=== PATIENT | female | born 1995 | race American Indian/Alaskan Native ===

== ENCOUNTER 2017-09-25 15:03 | Inpatient (IN) | payer OTHER ==
[2017-09-25 16:32] LABS: Hematocrit 35.8 % (30.3-42.9); Hemoglobin 12.4 gm/dl (10.1-14.3); Mean Corpuscular HGB Conc 35 % (30-34); Mean Corpuscular Hemoglobin 33 pg (28-32); Mean Corpuscular Volume 95 fl (79-97); Platelet Count 124 K/mm3 (140-440); Red Blood Count 3.78 M/mm3 (3.65-5.03); Red Cell Distribution Width 13.4 % (13.2-15.2); White Blood Count 7.9 K/mm3 (4.5-11.0)
[2017-09-25 16:40] LABS: Bacteria,Urine 4+ /HPF (Negative); Bilirubin,Urine NEG (Negative); Blood,Urine NEG (Negative); Ketones,Urine NEG (Negative); Leukocyte Esterase,Urine NEG (Negative); Mucus,Urine 1+ /HPF; Nitrite,Urine NEG (Negative); Urobilinogen,Urine < 2.0 mg/dL (<2.0)
[2017-09-25 16:41] LABS: Protein,Urine >500 mg/dL (Negative)
[2017-09-25 16:55] LABS: Alanine Aminotransferase 12 units/L (7-56); Lactate Dehydrogenase 268 units/L (91-180); Uric Acid 7.4 mg/dL (3.5-7.6)
[2017-09-25] MEDS ORDERED: MINERAL OIL PO PRN (17:10)
--- NOTE | 2017-09-25 17:38 | History and Physical Report ---
History of Present Illness Date of examination: 09/25/17 Date of admission: 09/25/17 15:33 Chief complaint: 37 weeks with gestational HTN History of present illness: Patient is a 22 year old , LMP 01/09/17, EDC 10/16/17 who was sent from the office at 37 weeks gestation for elevated BP and edema. She denies any headache , visual changes, or RUQ pain. She reports good movement. Her care is complicated by morbid obesity, GBS bacturiria. FHT has been CAT 1. Past History Past Medical History: other (bronchitis) Past Surgical History: no surgical history - Obstetrical History Expected Date of Delivery: 10/16/17 Actual Gestation: 37 Week(s) 0 Day(s) : 1 Para: 0 Medications and Allergies Allergies Allergy/AdvReac Type Severity Reaction Status Date / Time No Known Allergies Allergy Unverified 09/25/17 16:24 Home Medications Medication Instructions Recorded Confirmed Last Taken Type RX: No Known Home Medications [No 09/25/17 09/25/17 Unknown History Reported Home Medications] Active Meds: Active Medications Lactated Ringer's (Lactated Ringers) 1,000 mls @ 125 mls/hr IV DIRECT URSULA Mineral Oil (Mineral Oil) 30 ml PO QHS PRN PRN Reason: Constipation - Vital Signs Vital signs: Vital Signs Pulse BP 84 132/78 09/25/17 15:53 09/25/17 15:53 Temp Pulse Resp BP Pulse Ox 98.1 F 84 18 162/85 99 09/25/17 17:00 09/25/17 17:27 09/25/17 17:00 09/25/17 16:50 09/25/17 17:27 - Physical Exam Cardiovascular: Normal S1, Normal S2 Lungs: Positive: Clear to auscultation Vulva: both: normal Adnexa: both: normal Deep Tendon Reflex Grade: Normal +2 - Obstetrical FHR: category 1 Uterine Contraction Monitor Mode: External Uterine Contraction Pattern: Absent Results Result Diagrams: 09/25/17 16:24 09/25/17 16:24 Abnormal lab results 09/25/17 09/25/17 09/25/17 Range/Units 15:30 16:24 16:24 MCH 33 H (28-32) pg MCHC 35 H (30-34) % Plt Count 124 L (140-440) K/mm3 Lactate Dehydrogenase 268 H (91-180) units/L Urine WBC (Auto) 19.0 H (0.0-6.0) /HPF All other labs normal. Assessment and Plan - Patient Problems (1) 37 weeks gestation of Current Visit: Yes Status: Acute (2) Pre-eclampsia Current Visit: Yes Status: Acute Plan to address problem: Admit to L&D. Toxemia labs done. FHT and toco monitoring. Magnesium sulfate. Monitor Mg level, urine output. Monitor BP. (3) Morbid obesity due to excess calories Current Visit: Yes Status: Acute
[2017-09-25] MEDS ORDERED: MAGNESIUM SULFATE 4GM/100ML 4 GM/100 ML BAG IV ONE (17:45)
--- NOTE | 2017-09-25 17:56 | Progress Note ---
Assessment and Plan - Patient Problems (1) 37 weeks gestation of Current Visit: Yes Status: Acute (2) Pre-eclampsia Current Visit: Yes Status: Acute Plan to address problem: Toxemia labs done. FHT and toco monitoring. Magnesium sulfate. Monitor Mg level, urine output. Monitor BP. Labor induction with cytotec. (3) Morbid obesity due to excess calories Current Visit: Yes Status: Acute (4) GBS (group B streptococcus) infection Current Visit: Yes Status: Acute Plan to address problem: For IV antibiotics in active labor. (5) Wheezing symptom Current Visit: Yes Status: Acute Plan to address problem: Albuterol Q4 hrs. Subjective - Subjective Date of service: 09/25/17 Principal diagnosis: 37 weeks with pre-eclampsia Interval history: Patient is a 22 year old , LMP 01/09/17, EDC 10/16/17 who was sent from the office at 37 weeks gestation for elevated BP and edema. She denies any headache , visual changes, or RUQ pain. She reports good movement. Her care is complicated by morbid obesity, GBS bacturiria. FHT has been CAT 1. Toxemia labs were sent. I discussed labor induction with patient for pre-eclampsia. Will start magnesium sulfate. Monitor mg level, BP, urine output. Will insert cytotec, continue monitoring. Objective - Vital Signs Vital Signs: Vital Signs - 12hr 09/25/17 09/25/17 09/25/17 15:53 16:05 16:06 Temperature Pulse Rate 84 84 85 Respiratory Rate Blood Pressure 132/78 140/81 O2 Sat by Pulse 100 Oximetry 09/25/17 09/25/17 09/25/17 16:11 16:16 16:21 Temperature Pulse Rate 85 94 H 93 H Respiratory Rate Blood Pressure O2 Sat by Pulse 98 98 98 Oximetry 09/25/17 09/25/17 09/25/17 16:26 16:31 16:34 Temperature Pulse Rate 89 86 91 H Respiratory Rate Blood Pressure O2 Sat by Pulse 98 98 93 Oximetry 09/25/17 09/25/17 09/25/17 16:36 16:41 16:46 Temperature Pulse Rate 94 H 84 84 Respiratory Rate Blood Pressure 132/80 O2 Sat by Pulse 94 97 98 Oximetry 09/25/17 09/25/17 09/25/17 16:50 16:51 16:56 Temperature Pulse Rate 86 78 79 Respiratory Rate Blood Pressure 162/85 O2 Sat by Pulse 97 98 Oximetry 09/25/17 09/25/17 09/25/17 17:00 17:01 17:06 Temperature 98.1 F Pulse Rate 90 73 Respiratory 18 Rate Blood Pressure O2 Sat by Pulse 97 98 Oximetry 09/25/17 09/25/17 09/25/17 17:11 17:17 17:22 Temperature Pulse Rate 88 85 87 Respiratory Rate Blood Pressure O2 Sat by Pulse 97 99 99 Oximetry 09/25/17 09/25/17 09/25/17 17:27 17:32 17:37 Temperature Pulse Rate 84 86 74 Respiratory Rate Blood Pressure 159/87 O2 Sat by Pulse 99 99 95 Oximetry 09/25/17 09/25/17 09/25/17 17:42 17:47 17:52 Temperature Pulse Rate 88 84 90 Respiratory Rate Blood Pressure O2 Sat by Pulse 98 98 97 Oximetry - Exam Cardiovascular: Normal S1, Normal S2 Lungs: Clear to auscultation Vulva: both: normal FHR: category 1 Uterine Contraction Monitor Mode: External Uterine Contraction Pattern: Absent Deep Tendon Reflex Grade: Normal +2 - Labs Labs: Abnormal Labs 09/25/17 09/25/17 09/25/17 15:30 16:24 16:24 MCH 33 H MCHC 35 H Plt Count 124 L Lactate Dehydrogenase 268 H Urine WBC (Auto) 19.0 H Laboratory Results - last 24 hr 09/25/17 09/25/17 09/25/17 15:30 16:24 16:24 WBC 7.9 RBC 3.78 Hgb 12.4 Hct 35.8 MCV 95 MCH 33 H MCHC 35 H RDW 13.4 Plt Count 124 L Creatinine 0.8 Estimated GFR > 60 Uric Acid 7.4 AST 17 ALT 12 Lactate Dehydrogenase 268 H Urine Color Yellow Urine Turbidity Clear Urine pH 6.0 Ur Specific [place] 1.020 Urine Protein >500 Urine Glucose (UA) Neg Urine Ketones Neg Urine Blood Neg Urine Nitrite Neg Urine Bilirubin Neg Urine Urobilinogen < 2.0 Ur Leukocyte Esterase Neg Urine WBC (Auto) 19.0 H Urine RBC (Auto) 4.0 U Epithel Cells (Auto) 6.0 Urine Bacteria (Auto) 4+ Hyaline Casts 2 Urine Mucus 1+
[2017-09-25] MEDS ORDERED: MAGNESIUM SULFATE 40GM/1000ML 40 GM/1,000 ML BAG IV SCH (18:00)
[2017-09-25] MEDS: CYTOTEC VG PRN (18:00)
[2017-09-25] MEDS ORDERED: PROAIR IH PRN (18:02)
--- NOTE | 2017-09-25 18:20 | Progress Note ---
Assessment and Plan - Patient Problems (1) 37 weeks gestation of Current Visit: Yes Status: Acute (2) Pre-eclampsia Current Visit: Yes Status: Acute Plan to address problem: Magnesium sulfate was started. Monitor Mg level, urine output. Monitor BP. presentation was confirmed to be VTX by bedside ultrasound. Labor induced with cytotec dose#1 inserted. Continue FHT and toco monitoring. (3) Morbid obesity due to excess calories Current Visit: Yes Status: Acute (4) GBS (group B streptococcus) infection Current Visit: Yes Status: Acute Plan to address problem: For IV antibiotics in active labor. (5) Wheezing symptom Current Visit: Yes Status: Acute Plan to address problem: Albuterol Q4 hrs. Subjective - Subjective Date of service: 09/25/17 Principal diagnosis: 37 weeks with pre-eclampsia Interval history: Patient is a 22 year old , LMP 01/09/17, EDC 10/16/17 who was sent from the office at 37 weeks gestation for elevated BP. She was found to have pre- eclampsia. She denies any headache, visual changes, or RUQ pain. I discussed labor induction with patient. Cytotec 25 mcg was inserted at 6:10 PM. FHT and toco monitoring. Magnesium sulfate started. Monitor mg level, BP, urine output. Objective - Vital Signs Vital Signs: Vital Signs - 12hr 09/25/17 09/25/17 09/25/17 15:53 16:05 16:06 Temperature Pulse Rate 84 84 85 Respiratory Rate Blood Pressure 132/78 140/81 O2 Sat by Pulse 100 Oximetry 09/25/17 09/25/17 09/25/17 16:11 16:16 16:21 Temperature Pulse Rate 85 94 H 93 H Respiratory Rate Blood Pressure O2 Sat by Pulse 98 98 98 Oximetry 09/25/17 09/25/17 09/25/17 16:26 16:31 16:34 Temperature Pulse Rate 89 86 91 H Respiratory Rate Blood Pressure O2 Sat by Pulse 98 98 93 Oximetry 09/25/17 09/25/17 09/25/17 16:36 16:41 16:46 Temperature Pulse Rate 94 H 84 84 Respiratory Rate Blood Pressure 132/80 O2 Sat by Pulse 94 97 98 Oximetry 09/25/17 09/25/17 09/25/17 16:50 16:51 16:56 Temperature Pulse Rate 86 78 79 Respiratory Rate Blood Pressure 162/85 O2 Sat by Pulse 97 98 Oximetry 09/25/17 09/25/17 09/25/17 17:00 17:01 17:06 Temperature 98.1 F Pulse Rate 90 73 Respiratory 18 Rate Blood Pressure O2 Sat by Pulse 97 98 Oximetry 09/25/17 09/25/17 09/25/17 17:11 17:17 17:22 Temperature Pulse Rate 88 85 87 Respiratory Rate Blood Pressure O2 Sat by Pulse 97 99 99 Oximetry 09/25/17 09/25/17 09/25/17 17:27 17:32 17:37 Temperature Pulse Rate 84 86 74 Respiratory Rate Blood Pressure 159/87 O2 Sat by Pulse 99 99 95 Oximetry 09/25/17 09/25/17 09/25/17 17:42 17:47 17:52 Temperature Pulse Rate 88 84 90 Respiratory Rate Blood Pressure O2 Sat by Pulse 98 98 97 Oximetry 09/25/17 09/25/17 09/25/17 17:57 18:02 18:06 Temperature Pulse Rate 94 H 84 85 Respiratory Rate Blood Pressure 150/80 O2 Sat by Pulse 97 98 Oximetry 09/25/17 09/25/17 09/25/17 18:07 18:12 18:17 Temperature Pulse Rate 83 81 90 Respiratory Rate Blood Pressure O2 Sat by Pulse 98 98 98 Oximetry - Exam Cardiovascular: Normal S1 Lungs: Clear to auscultation Vulva: both: normal FHR: category 1 Uterine Contraction Monitor Mode: External - Labs Labs: Abnormal Labs 09/25/17 09/25/17 09/25/17 15:30 16:24 16:24 MCH 33 H MCHC 35 H Plt Count 124 L Lactate Dehydrogenase 268 H Urine WBC (Auto) 19.0 H Laboratory Results - last 24 hr 09/25/17 09/25/17 09/25/17 15:30 16:24 16:24 WBC 7.9 RBC 3.78 Hgb 12.4 Hct 35.8 MCV 95 MCH 33 H MCHC 35 H RDW 13.4 Plt Count 124 L Creatinine 0.8 Estimated GFR > 60 Uric Acid 7.4 AST 17 ALT 12 Lactate Dehydrogenase 268 H Urine Color Yellow Urine Turbidity Clear Urine pH 6.0 Ur Specific [place] 1.020 Urine Protein >500 Urine Glucose (UA) Neg Urine Ketones Neg Urine Blood Neg Urine Nitrite Neg Urine Bilirubin Neg Urine Urobilinogen < 2.0 Ur Leukocyte Esterase Neg Urine WBC (Auto) 19.0 H Urine RBC (Auto) 4.0 U Epithel Cells (Auto) 6.0 Urine Bacteria (Auto) 4+ Hyaline Casts 2 Urine Mucus 1+
--- NOTE | 2017-09-25 22:51 | Event Note ---
Date: 09/25/17 S: Pt in high-villagomez's position. Family members at bedside. Reports discomfort at mooney catheter site. Was feeling her ctxs earlier but not any more. Denies headache, vision changes, epigastric pain, or N/V. O: FHR 130, moderate variability, +accels, no decels CTXS irreg, palpate mild SVE FT/th/-3 Cytotec 25mcg to posterior fornix of vagina @ 22:30 BPs 139/82, 141/83, 153/81, 188/93 Magnesium therapy ongoing A: 22yo G 1 P 0 0 0 0 @ 37 wks gestation Category I FHR Pre-eclampsia No active labor P: Continue magnesium sulfate therapy Continue cervical ripening with Cytotec Anticipate vaginal delivery
[2017-09-26] MEDS ORDERED: SUBLIMAZE IV PRN (01:18)
[2017-09-26] MEDS ORDERED: STADOL IV PRN (01:18)
[2017-09-26] MEDS: CYTOTEC VG PRN (02:25)
[2017-09-26] MEDS: LACTATED RINGERS 1,000 ML IV SCH (05:43)
[2017-09-26] MEDS ORDERED: POLYCILLIN/NS 2 GM/100 ML 2 GM/100 ML BAG IV ONE (06:49)
[2017-09-26 08:13] LABS: Basophils % (Auto) 0.3 % (0.0-1.8); Eosinophils % (Auto) 0.6 % (0.0-4.3); Hematocrit 38.5 % (30.3-42.9); Hemoglobin 13.2 gm/dl (10.1-14.3); Mean Corpuscular HGB Conc 34 % (30-34); Mean Corpuscular Hemoglobin 33 pg (28-32); Mean Corpuscular Volume 95 fl (79-97); Platelet Count 124 K/mm3 (140-440); Red Blood Count 4.04 M/mm3 (3.65-5.03); Red Cell Distribution Width 13.5 % (13.2-15.2); White Blood Count 10.2 K/mm3 (4.5-11.0)
[2017-09-26] MEDS ORDERED: POLYCILLIN/NS 1 GM/50 ML 1 GM/50 ML BAG IV SCH (10:00)
[2017-09-26] MEDS ORDERED: PROVENTIL IH ONE (10:09)
--- NOTE | 2017-09-26 10:38 | Progress Note ---
Assessment and Plan - Patient Problems (1) 37 weeks gestation of Current Visit: Yes Status: Acute (2) Pre-eclampsia Current Visit: Yes Status: Acute Plan to address problem: FHT and toco monitoring. Magnesium sulfate. Monitor Mg level, urine output. Monitor BP. (3) Morbid obesity due to excess calories Current Visit: Yes Status: Acute (4) GBS (group B streptococcus) infection Current Visit: Yes Status: Acute Plan to address problem: For IV antibiotics in active labor. (5) Wheezing symptom Current Visit: Yes Status: Acute Plan to address problem: Albuterol Q4 hrs. (6) Failed induction of labor, antepartum Current Visit: Yes Status: Acute Plan to address problem: I discussed delivery via C/section with the patient. Risk, benefits of the procedure were discussed in detail with the patient which inlcuded but not limited to the risks of infection, hemorrhage requiring blood transfusion, injury to the bowel, bladder, and blood vessels. She expressed understanding, her questions were answered, she gave her informed consent. Patient is NPO. Anesthesia and peds have been notified. Subjective - Subjective Date of service: 09/26/17 Principal diagnosis: 37 weeks with pre-eclampsia Interval history: Patient is a 22 year old , LMP 01/09/17, EDC 10/16/17 who was sent from the office at 37 weeks gestation for elevated BP. She was given magnesium sulfate and induced with cytotec. She has not made any progress after 4 cytotec doses. She was counselled for delivery via C/section. FHT has been CAT 1. Objective - Vital Signs Vital Signs: Vital Signs - 12hr 09/25/17 09/25/17 09/25/17 22:37 22:42 22:45 Temperature Pulse Rate 80 89 81 Pulse Rate [ Bilateral] Respiratory Rate Respiratory Rate [Bilateral ] Blood Pressure 188/93 Blood Pressure [Right] O2 Sat by Pulse 99 99 Oximetry 09/25/17 09/25/17 09/25/17 22:47 22:52 22:57 Temperature Pulse Rate 79 83 84 Pulse Rate [ Bilateral] Respiratory Rate Respiratory Rate [Bilateral ] Blood Pressure Blood Pressure [Right] O2 Sat by Pulse 99 99 98 Oximetry 09/25/17 09/25/17 09/25/17 23:01 23:02 23:07 Temperature Pulse Rate 82 78 82 Pulse Rate [ Bilateral] Respiratory Rate Respiratory Rate [Bilateral ] Blood Pressure 199/107 Blood Pressure [Right] O2 Sat by Pulse 99 98 Oximetry 09/25/17 09/25/17 09/25/17 23:12 23:14 23:17 Temperature Pulse Rate 80 83 80 Pulse Rate [ Bilateral] Respiratory Rate Respiratory Rate [Bilateral ] Blood Pressure 188/110 160/77 Blood Pressure [Right] O2 Sat by Pulse 99 98 Oximetry 09/25/17 09/25/17 09/25/17 23:22 23:27 23:29 Temperature Pulse Rate 78 82 83 Pulse Rate [ Bilateral] Respiratory Rate Respiratory Rate [Bilateral ] Blood Pressure 174/83 Blood Pressure [Right] O2 Sat by Pulse 100 100 Oximetry 09/25/17 09/25/17 09/25/17 23:32 23:37 23:42 Temperature Pulse Rate 84 80 80 Pulse Rate [ Bilateral] Respiratory Rate Respiratory Rate [Bilateral ] Blood Pressure Blood Pressure [Right] O2 Sat by Pulse 99 99 99 Oximetry 09/25/17 09/25/17 09/25/17 23:45 23:47 23:52 Temperature Pulse Rate 75 83 81 Pulse Rate [ Bilateral] Respiratory Rate Respiratory Rate [Bilateral ] Blood Pressure 173/91 Blood Pressure [Right] O2 Sat by Pulse 99 99 Oximetry 09/25/17 09/25/17 09/26/17 23:57 23:59 00:00 Temperature Pulse Rate 88 84 81 Pulse Rate [ Bilateral] Respiratory Rate Respiratory Rate [Bilateral ] Blood Pressure 180/94 Blood Pressure 119/67 [Right] O2 Sat by Pulse 99 Oximetry 09/26/17 09/26/17 09/26/17 00:02 00:07 00:12 Temperature Pulse Rate 80 80 88 Pulse Rate [ Bilateral] Respiratory Rate Respiratory Rate [Bilateral ] Blood Pressure Blood Pressure [Right] O2 Sat by Pulse 98 100 100 Oximetry 09/26/17 09/26/17 09/26/17 00:16 00:17 00:22 Temperature Pulse Rate 83 89 85 Pulse Rate [ Bilateral] Respiratory Rate Respiratory Rate [Bilateral ] Blood Pressure 208/97 Blood Pressure [Right] O2 Sat by Pulse 99 100 Oximetry 09/26/17 09/26/17 09/26/17 00:27 00:29 00:32 Temperature Pulse Rate 85 81 91 H Pulse Rate [ Bilateral] Respiratory Rate Respiratory Rate [Bilateral ] Blood Pressure 119/67 Blood Pressure [Right] O2 Sat by Pulse 100 100 Oximetry 09/26/17 09/26/17 09/26/17 00:37 00:42 00:44 Temperature Pulse Rate 85 81 81 Pulse Rate [ Bilateral] Respiratory Rate Respiratory Rate [Bilateral ] Blood Pressure 131/71 Blood Pressure [Right] O2 Sat by Pulse 100 100 Oximetry 09/26/17 09/26/17 09/26/17 00:47 00:52 00:57 Temperature Pulse Rate 77 83 83 Pulse Rate [ Bilateral] Respiratory Rate Respiratory Rate [Bilateral ] Blood Pressure Blood Pressure [Right] O2 Sat by Pulse 99 99 98 Oximetry 09/26/17 09/26/17 09/26/17 01:00 01:01 01:02 Temperature Pulse Rate 77 82 81 Pulse Rate [ Bilateral] Respiratory Rate Respiratory Rate [Bilateral ] Blood Pressure 118/58 Blood Pressure [Right] O2 Sat by Pulse 85 98 Oximetry 09/26/17 09/26/17 09/26/17 01:07 01:12 01:17 Temperature Pulse Rate 75 85 85 Pulse Rate [ Bilateral] Respiratory Rate Respiratory Rate [Bilateral ] Blood Pressure Blood Pressure [Right] O2 Sat by Pulse 98 98 97 Oximetry 09/26/17 09/26/17 09/26/17 01:22 01:27 01:32 Temperature Pulse Rate 89 85 82 Pulse Rate [ Bilateral] Respiratory Rate Respiratory Rate [Bilateral ] Blood Pressure Blood Pressure [Right] O2 Sat by Pulse 97 97 97 Oximetry 09/26/17 09/26/17 09/26/17 01:37 01:42 01:47 Temperature Pulse Rate 79 78 80 Pulse Rate [ Bilateral] Respiratory Rate Respiratory Rate [Bilateral ] Blood Pressure Blood Pressure [Right] O2 Sat by Pulse 97 97 96 Oximetry 09/26/17 09/26/17 09/26/17 01:52 01:57 02:00 Temperature 97.8 F Pulse Rate 83 85 86 Pulse Rate [ Bilateral] Respiratory 18 Rate Respiratory Rate [Bilateral ] Blood Pressure Blood Pressure 139/76 [Right] O2 Sat by Pulse 96 97 Oximetry 09/26/17 09/26/17 09/26/17 02:02 02:07 02:12 Temperature Pulse Rate 87 88 87 Pulse Rate [ Bilateral] Respiratory 18 Rate Respiratory Rate [Bilateral ] Blood Pressure Blood Pressure [Right] O2 Sat by Pulse 97 98 97 Oximetry 09/26/17 09/26/17 09/26/17 02:17 02:19 02:20 Temperature 96.4 F L Pulse Rate 82 86 85 Pulse Rate [ Bilateral] Respiratory 18 Rate Respiratory Rate [Bilateral ] Blood Pressure 148/83 Blood Pressure 148/83 [Right] O2 Sat by Pulse 98 97 Oximetry 09/26/17 09/26/17 09/26/17 02:22 02:27 02:33 Temperature Pulse Rate 92 H 85 58 L Pulse Rate [ Bilateral] Respiratory Rate Respiratory Rate [Bilateral ] Blood Pressure Blood Pressure [Right] O2 Sat by Pulse 99 98 77 L Oximetry 09/26/17 09/26/17 09/26/17 02:35 02:36 02:40 Temperature Pulse Rate 85 80 87 Pulse Rate [ Bilateral] Respiratory Rate Respiratory Rate [Bilateral ] Blood Pressure 159/85 Blood Pressure [Right] O2 Sat by Pulse 100 100 Oximetry 09/26/17 09/26/17 09/26/17 02:45 02:50 02:55 Temperature Pulse Rate 79 83 84 Pulse Rate [ Bilateral] Respiratory Rate Respiratory Rate [Bilateral ] Blood Pressure Blood Pressure [Right] O2 Sat by Pulse 100 100 100 Oximetry 09/26/17 09/26/17 09/26/17 02:58 03:00 03:05 Temperature Pulse Rate 88 84 83 Pulse Rate [ Bilateral] Respiratory Rate Respiratory Rate [Bilateral ] Blood Pressure 139/76 Blood Pressure [Right] O2 Sat by Pulse 90 96 94 Oximetry 09/26/17 09/26/17 09/26/17 03:10 03:15 03:16 Temperature Pulse Rate 84 91 H 96 H Pulse Rate [ Bilateral] Respiratory Rate Respiratory Rate [Bilateral ] Blood Pressure Blood Pressure [Right] O2 Sat by Pulse 96 95 94 Oximetry 09/26/17 09/26/17 09/26/17 03:20 03:25 03:30 Temperature Pulse Rate 83 85 91 H Pulse Rate [ Bilateral] Respiratory Rate Respiratory Rate [Bilateral ] Blood Pressure Blood Pressure [Right] O2 Sat by Pulse 95 97 96 Oximetry 09/26/17 09/26/17 09/26/17 03:35 03:36 03:40 Temperature Pulse Rate 84 77 82 Pulse Rate [ Bilateral] Respiratory Rate Respiratory Rate [Bilateral ] Blood Pressure 135/83 Blood Pressure [Right] O2 Sat by Pulse 96 97 Oximetry 09/26/17 09/26/17 09/26/17 03:45 03:50 03:55 Temperature Pulse Rate 84 84 88 Pulse Rate [ Bilateral] Respiratory Rate Respiratory Rate [Bilateral ] Blood Pressure Blood Pressure [Right] O2 Sat by Pulse 97 96 96 Oximetry 09/26/17 09/26/17 09/26/17 04:00 04:05 04:07 Temperature Pulse Rate 84 92 H 85 Pulse Rate [ Bilateral] Respiratory Rate Respiratory Rate [Bilateral ] Blood Pressure 125/69 Blood Pressure [Right] O2 Sat by Pulse 98 97 Oximetry 09/26/17 09/26/17 09/26/17 04:10 04:15 04:20 Temperature Pulse Rate 79 86 85 Pulse Rate [ Bilateral] Respiratory Rate Respiratory Rate [Bilateral ] Blood Pressure Blood Pressure [Right] O2 Sat by Pulse 97 97 98 Oximetry 09/26/17 09/26/17 09/26/17 04:25 04:30 04:35 Temperature Pulse Rate 84 89 92 H Pulse Rate [ Bilateral] Respiratory Rate Respiratory Rate [Bilateral ] Blood Pressure Blood Pressure [Right] O2 Sat by Pulse 97 97 98 Oximetry 09/26/17 09/26/17 09/26/17 04:37 04:40 04:45 Temperature Pulse Rate 83 84 82 Pulse Rate [ Bilateral] Respiratory Rate Respiratory Rate [Bilateral ] Blood Pressure 122/60 Blood Pressure [Right] O2 Sat by Pulse 98 97 Oximetry 09/26/17 09/26/17 09/26/17 04:50 04:55 05:00 Temperature Pulse Rate 90 79 90 Pulse Rate [ Bilateral] Respiratory Rate Respiratory Rate [Bilateral ] Blood Pressure Blood Pressure [Right] O2 Sat by Pulse 98 98 97 Oximetry 09/26/17 09/26/17 09/26/17 05:05 05:10 05:15 Temperature Pulse Rate 78 77 77 Pulse Rate [ Bilateral] Respiratory Rate Respiratory Rate [Bilateral ] Blood Pressure 142/83 Blood Pressure [Right] O2 Sat by Pulse 97 99 98 Oximetry 09/26/17 09/26/17 09/26/17 05:20 05:25 05:30 Temperature Pulse Rate 77 86 81 Pulse Rate [ Bilateral] Respiratory Rate Respiratory Rate [Bilateral ] Blood Pressure Blood Pressure [Right] O2 Sat by Pulse 98 98 99 Oximetry 09/26/17 09/26/17 09/26/17 05:35 05:40 05:45 Temperature Pulse Rate 83 74 94 H Pulse Rate [ Bilateral] Respiratory Rate Respiratory Rate [Bilateral ] Blood Pressure 147/81 Blood Pressure [Right] O2 Sat by Pulse 99 99 98 Oximetry 09/26/17 09/26/17 09/26/17 05:50 05:55 06:00 Temperature Pulse Rate 81 83 69 Pulse Rate [ Bilateral] Respiratory Rate Respiratory Rate [Bilateral ] Blood Pressure Blood Pressure [Right] O2 Sat by Pulse 99 98 100 Oximetry 09/26/17 09/26/17 09/26/17 06:01 06:05 06:06 Temperature Pulse Rate 65 74 73 Pulse Rate [ Bilateral] Respiratory Rate Respiratory Rate [Bilateral ] Blood Pressure 149/91 Blood Pressure [Right] O2 Sat by Pulse 86 98 Oximetry 09/26/17 09/26/17 09/26/17 06:10 06:15 06:20 Temperature Pulse Rate 73 73 75 Pulse Rate [ Bilateral] Respiratory Rate Respiratory Rate [Bilateral ] Blood Pressure Blood Pressure [Right] O2 Sat by Pulse 98 98 98 Oximetry 09/26/17 09/26/17 09/26/17 06:25 06:30 06:35 Temperature Pulse Rate 74 75 79 Pulse Rate [ Bilateral] Respiratory Rate Respiratory Rate [Bilateral ] Blood Pressure Blood Pressure [Right] O2 Sat by Pulse 97 97 97 Oximetry 09/26/17 09/26/17 09/26/17 06:36 06:40 06:45 Temperature Pulse Rate 85 75 73 Pulse Rate [ Bilateral] Respiratory Rate Respiratory Rate [Bilateral ] Blood Pressure 160/97 Blood Pressure [Right] O2 Sat by Pulse 93 98 98 Oximetry 09/26/17 09/26/17 09/26/17 06:50 06:55 07:00 Temperature Pulse Rate 75 75 73 Pulse Rate [ Bilateral] Respiratory Rate Respiratory Rate [Bilateral ] Blood Pressure Blood Pressure [Right] O2 Sat by Pulse 97 99 100 Oximetry 09/26/17 09/26/17 09/26/17 07:05 07:08 07:10 Temperature 97.7 F Pulse Rate 76 75 Pulse Rate [ Bilateral] Respiratory 16 Rate Respiratory Rate [Bilateral ] Blood Pressure 145/83 Blood Pressure 146/82 [Right] O2 Sat by Pulse 100 99 100 Oximetry 09/26/17 09/26/17 09/26/17 07:14 07:15 07:20 Temperature Pulse Rate 78 82 83 Pulse Rate [ Bilateral] Respiratory Rate Respiratory Rate [Bilateral ] Blood Pressure 146/82 Blood Pressure [Right] O2 Sat by Pulse 100 99 Oximetry 09/26/17 09/26/17 09/26/17 07:25 07:30 07:35 Temperature Pulse Rate 77 90 80 Pulse Rate [ Bilateral] Respiratory Rate Respiratory Rate [Bilateral ] Blood Pressure 138/82 Blood Pressure [Right] O2 Sat by Pulse 100 99 99 Oximetry 09/26/17 09/26/17 09/26/17 07:40 07:45 07:50 Temperature Pulse Rate 84 81 84 Pulse Rate [ Bilateral] Respiratory Rate Respiratory Rate [Bilateral ] Blood Pressure Blood Pressure [Right] O2 Sat by Pulse 98 99 100 Oximetry 09/26/17 09/26/17 10:13 10:20 Temperature Pulse Rate Pulse Rate [ 80 78 Bilateral] Respiratory Rate Respiratory 14 14 Rate [Bilateral ] Blood Pressure Blood Pressure [Right] O2 Sat by Pulse Oximetry - Exam Cardiovascular: Normal S1, Normal S2 Lungs: Clear to auscultation Vulva: both: normal FHR: category 1 Uterine Contraction Monitor Mode: External Cervical Dilatation: 0 Cervical Effacement Percentage: 0 station: -3 Uterine Contraction Pattern: Absent Deep Tendon Reflex Grade: Normal but brisk +3 - Labs Labs: Abnormal Labs 09/25/17 09/25/17 09/25/17 15:30 16:24 16:24 MCH 33 H MCHC 35 H Plt Count 124 L Pitkin % (Auto) Magnesium Lactate Dehydrogenase 268 H Urine WBC (Auto) 19.0 H 09/26/17 09/26/17 09/26/17 00:20 05:52 07:50 MCH 33 H MCHC Plt Count 124 L Pitkin % (Auto) 8.0 H Magnesium 3.20 H 4.40 H Lactate Dehydrogenase Urine WBC (Auto) Laboratory Results - last 24 hr 09/25/17 09/25/17 09/25/17 15:30 16:24 16:24 WBC 7.9 RBC 3.78 Hgb 12.4 Hct 35.8 MCV 95 MCH 33 H MCHC 35 H RDW 13.4 Plt Count 124 L Lymph % (Auto) Pitkin % (Auto) Eos % (Auto) Baso % (Auto) Lymph # Pitkin # Eos # Baso # Seg Neutrophils % Seg Neutrophils # Creatinine 0.8 Estimated GFR > 60 Uric Acid 7.4 Magnesium AST 17 ALT 12 Lactate Dehydrogenase 268 H Urine Color Yellow Urine Turbidity Clear Urine pH 6.0 Ur Specific Mccormick 1.020 Urine Protein >500 Urine Glucose (UA) Neg Urine Ketones Neg Urine Blood Neg Urine Nitrite Neg Urine Bilirubin Neg Urine Urobilinogen < 2.0 Ur Leukocyte Esterase Neg Urine WBC (Auto) 19.0 H Urine RBC (Auto) 4.0 U Epithel Cells (Auto) 6.0 Urine Bacteria (Auto) 4+ Hyaline Casts 2 Urine Mucus 1+ 09/25/17 09/26/17 09/26/17 18:04 00:20 05:52 WBC RBC Hgb Hct MCV MCH MCHC RDW Plt Count Lymph % (Auto) Pitkin % (Auto) Eos % (Auto) Baso % (Auto) Lymph # Pitkin # Eos # Baso # Seg Neutrophils % Seg Neutrophils # Creatinine Estimated GFR Uric Acid Magnesium 1.80 3.20 H 4.40 H AST ALT Lactate Dehydrogenase Urine Color Urine Turbidity Urine pH Ur Specific Mccormick Urine Protein Urine Glucose (UA) Urine Ketones Urine Blood Urine Nitrite Urine Bilirubin Urine Urobilinogen Ur Leukocyte Esterase Urine WBC (Auto) Urine RBC (Auto) U Epithel Cells (Auto) Urine Bacteria (Auto) Hyaline Casts Urine Mucus 09/26/17 07:50 WBC 10.2 RBC 4.04 Hgb 13.2 Hct 38.5 MCV 95 MCH 33 H MCHC 34 RDW 13.5 Plt Count 124 L Lymph % (Auto) 27.2 Pitkin % (Auto) 8.0 H Eos % (Auto) 0.6 Baso % (Auto) 0.3 Lymph # 2.8 Pitkin # 0.8 Eos # 0.1 Baso # 0.0 Seg Neutrophils % 63.9 Seg Neutrophils # 6.5 Creatinine Estimated GFR Uric Acid Magnesium AST ALT Lactate Dehydrogenase Urine Color Urine Turbidity Urine pH Ur Specific Mccormick Urine Protein Urine Glucose (UA) Urine Ketones Urine Blood Urine Nitrite Urine Bilirubin Urine Urobilinogen Ur Leukocyte Esterase Urine WBC (Auto) Urine RBC (Auto) U Epithel Cells (Auto) Urine Bacteria (Auto) Hyaline Casts Urine Mucus
[2017-09-26] MEDS ORDERED: ANCEF/STERILE WATER 2 GM/20 ML 2 GM/20 ML SYRINGE IV NR (11:00)
[2017-09-26] MEDS ORDERED: BICITRA PO NR (11:00)
[2017-09-26] MEDS ORDERED: LACTATED RINGERS 1,000 ML IV SCH (11:00)
[2017-09-26] MEDS ORDERED: PROVENTIL IH PRN (11:48)
[2017-09-26] MEDS ORDERED: PEPCID IV ONE (13:33)
[2017-09-26] MEDS ORDERED: REGLAN ONE (13:33)
[2017-09-26] MEDS ORDERED: MORPHINE IV PRN ×2 (13:44→15:57)
[2017-09-26] MEDS ORDERED: NARCAN 0.4 MG/1 ML IV PRN ×2 (13:44→15:57)
[2017-09-26] MEDS ORDERED: ZOFRAN IV PRN ×2 (13:44→15:57)
[2017-09-26] MEDS ORDERED: PHENERGAN PR PRN (13:44)
--- NOTE | 2017-09-26 13:44 | Anesthesia Day of Surgery ---
Anesthesia Day of Surgery - Day of Surgery Patient Examined: Yes Patient H&P Reviewed: Yes Patient is NPO: Yes
--- NOTE | 2017-09-26 13:44 | Anesthesia Consultation ---
Anesthesia Consult and Med Hx Date of service: 09/26/17 - Airway Anesthetic Teeth Evaluation: Good ROM Head & Neck: Adequate Mental/Hyoid Distance: Adequate Mallampati Class: Class II - Pre-Operative Health Status ASA Pre-Surgery Classification: ASA3 Proposed Anesthetic Plan: Epidural, Spinal - Pulmonary Hx Asthma: No Hx Respiratory Symptoms: Yes (bronchitis) COPD: No Hx Pneumonia: No - Cardiovascular System Hx Hypertension: No - Central Nervous System Hx Seizures: No Hx Psychiatric Problems: No - Endocrine Hx Renal Disease: No Hx End Stage Renal Disease: No Hx Hypothyroidism: No Hx Hyperthyroidism: No - Hematic Hx Sickle Cell Disease: No - Other Systems Hx Alcohol Use: No Hx Obesity: Yes
[2017-09-26] MEDS ORDERED: SODIUM CHLORIDE FLUSH SYRINGE 10 ML IV NR (14:00)
[2017-09-26] MEDS ORDERED: PITOCin/NS 20 UNIT/1000ML DRIP 20 UNITS/1,000 ML BAG IV SCH ×2 (14:00→16:00)
[2017-09-26] MEDS ORDERED: REGLAN IV NR (14:00)
[2017-09-26] MEDS ORDERED: PEPCID IV NR (14:00)
[2017-09-26] MEDS ORDERED: MORPHINE ONE (14:07)
[2017-09-26] MEDS ORDERED: ANCEF/STERILE WATER 2 GM/20 ML IV ONE (14:23)
[2017-09-26] MEDS ORDERED: NACL 0.9% IR ONE (14:30)
[2017-09-26] MEDS ORDERED: WATER FOR IRRIG STERILE IR ONE (14:30)
[2017-09-26] MEDS ORDERED: HEMABATE IM ONE ×2 (15:00→15:08)
[2017-09-26] MEDS ORDERED: NEO SYNEPHRINE/NS Syringe(OR USE) IV ONE (15:00)
[2017-09-26] MEDS ORDERED: ZOFRAN ONE (15:10)
[2017-09-26] MEDS ORDERED: TYLENOL PO PRN (15:57)
[2017-09-26] MEDS ORDERED: LANSINOH TP PRN (15:57)
[2017-09-26] MEDS ORDERED: MYLICON PO PRN (15:57)
[2017-09-26] MEDS ORDERED: TUCKS PAD TP PRN (15:57)
[2017-09-26] MEDS ORDERED: SODIUM CHLORIDE FLUSH SYRINGE 10 ML IV SCH (16:00)
[2017-09-26] MEDS: MAGNESIUM SULFATE 40GM/1000ML 40 GM/1,000 ML BAG IV SCH (16:00)
--- NOTE | 2017-09-26 16:01 | Post Anesthesia Evaluation ---
- Post Anesthesia Evaluation Patient Participated: Yes Airway Patent: Yes Stable Respiratory Function: Yes Nausea/Vomiting: No Temp > 96.8F: Yes Pain Manageable: Yes Adequeate Hydration: Yes Anesthesia Complications: No Block Receding Appropriately: Yes Patient on Ventilator: No
--- NOTE | 2017-09-26 16:18 | Operative Report ---
Operative Report Operative Report: Preoperative diagnosis: 1. SIUP at 37 weeks and 1 day gestation not in labor. 2. Preeclampsia. 3. Failed Induction. 4. Morbid obesity. Post operative diagnosis: Same as preop diagnosis. Procedure: Primary low-transverse section. Surgeon: Dr. Montano Insight Director: none Complications: Intraoperative uterine atony. EBL: 600 mL IVF: 1400 mL of Ringer's lactate Urine: 100 cc clear Intraoperative findings: A male infant found in an BRANDEN position, delivered at 2: 51 PM, Apgars 8 at 5 minutes and 9 at 5 minutes, weight 7 lbs. 2 oz. Procedure details: Risks, benefits, and alternatives of the procedure were discussed in detail with the patient which included but not limited to the risk of infection, hemorrhage requiring blood transfusion, injury to the bowel or bladder and blood vessels. The patient expressed understanding her questions were answered and she gave informed consent. The patient was taken to the operating room with an IV fluids and for infusing Ringer's lactate and a Geller catheter in place. In the operating room, she was placed in a sitting position and given spinal anesthesia. She was then placed in a dorsal supine position with a leftward tilt. venodyne boots were placed. The abdomen was washed and she was prepared and draped in the usual sterile fashion. After confirming adequate spinal anesthesia, a Pfannenstiel skin incision was made in the lower abdomen about 2 cm above the pubic symphysis using the scalpel. This incision was carried down to the underlying fascia using the Bovie. The fascia was incised bilaterally in a curvilinear fashion using the Bovie. 2 straight Kocker clamps were used to grasp the upper edge of the fascia from which the underlying rectus abdominis muscle was dissected off using the Bovie. A similar procedure was done with the lower edge of the fascia to dissect the underlying rectus abdominis muscle. The muscle was bluntly from the midline by pulling. The parietal peritoneum was grasped with 2 hemostat clamps and entered sharply using Metzenbaum seizures. A quick survey of the anatomy revealed a gravid uterus, normal fallopian tubes and ovaries bilaterally. A bladder flap was created. Alwexis'O retractor was placed at the incision for proper visualization. A low-transverse incision was made in the lower uterine segment using the scalpel and extended bilaterally in a curvilinear fashion using bandage scissors. The amniotic sac was ruptured, there was copious amount of clear amniotic fluid. The infant was found in BRANDEN position, the head was delivered atraumatically, followed by the delivery of the shoulders and rest of the body atraumatically. There was nuchal cord x1. The cord was clamped 2 and cut and the infant was handed off to the waiting egg factory worker. The was a male delivered at 2:51 PM, Apgars were 8 at 1 minutes and 9 at 5 minutes, weight was 7 pounds and 2 ounces. Cord blood was collected. The placenta was delivered manually and it was complete with a three -vessel cord. The uterine cavity was cleaned of clots and debris using dry lap sponges. Tyhere was uterine atony which was responsive to IV pitocin and myometrial hemabate. The uterine incision was repaired in a running locked fashion using 0 Vicryl sutures. A second layer of imbrication was placed. The gutters were cleaned of clots and debris using dry lap sponges. After confirming adequate hemostasis, the instruments were removed from the abdomen. The fascia was closed in a running fashion using 0 Vicryl sutures. The skin was closed with juanita. The counts of laps, needles, sponges, and instruments were correct 2. She tolerated the procedure well. She was taken to the recovery room in a stable condition.
[2017-09-26] MEDS: TORADOL IV PRN (16:35)
[2017-09-26] MEDS: BENADRYL IV PRN (16:47)
[2017-09-26] MEDS ORDERED: APRESOLINE IV ONE (22:56)
[2017-09-27] MEDS: BENADRYL IV PRN (01:04)
[2017-09-27] MEDS: MAGNESIUM SULFATE 40GM/1000ML 40 GM/1,000 ML BAG IV SCH (01:05)
[2017-09-27] MEDS: LACTATED RINGERS 1,000 ML IV SCH (05:05)
[2017-09-27] MEDS: TORADOL IV PRN (05:11)
[2017-09-27 05:46] LABS: Hemoglobin 12.2 gm/dl (10.1-14.3)
[2017-09-27] MEDS ORDERED: APRESOLINE IV ONE (07:00)
--- NOTE | 2017-09-27 11:26 | Progress Note ---
Assessment and Plan A: POD #1 Preeclampsia ( BPs elevated) P: Follow Routine PostOp orders Continue MagSO4 x [address] Montano due to elevated BPs on MagSO4 Subjective - Subjective Date of service: 09/27/17 Principal diagnosis: 37 weeks with pre-eclampsia Patient reports: appetite normal, voiding normally (Geller in place; adquate output), pain well controlled, flatus, bowel movement, other (Admits to blurry vision; denies HAs and Dizziness) Warren: in NICU Objective - Vital Signs Latest vital signs: Vital Signs Temp Pulse Resp BP BP Pulse Ox 09/27/17 08:38 98.5 F 78 18 149/86 99 09/27/17 06:05 99 H 20 142/72 100 09/27/17 04:00 98.5 F 88 20 167/93 100 09/27/17 02:00 99 H 20 169/102 100 09/27/17 00:30 98.8 F 98 H 20 154/89 100 09/26/17 22:35 98 H 20 153/89 09/26/17 22:15 103 H 168/101 09/26/17 20:50 98.2 F 85 20 164/109 98 09/26/17 17:10 98.2 F 77 20 145/93 09/26/17 16:45 97.9 F 09/26/17 16:40 78 16 143/95 99 09/26/17 16:30 73 17 141/95 99 09/26/17 16:20 74 23 151/104 98 09/26/17 16:10 70 23 144/94 97 09/26/17 16:00 71 22 150/89 97 09/26/17 15:50 97.9 F 77 17 151/95 98 09/26/17 15:47 80 18 99 09/26/17 13:36 86 143/93 09/26/17 13:05 102 H 138/80 09/26/17 12:36 84 140/84 09/26/17 11:56 98.2 F 18 09/26/17 11:53 88 141/92 Intake and Output 09/26/17 09/27/17 09/27/17 22:59 06:59 14:59 Intake Total 800 580.625 125 Output Total 500 2000 Balance 300 -1419.375 125 Intake: IV 800 340.625 125 Left Hand 125 MAGNESIUM SULFATE 40GM/ 340.625 1000ML 40 gm In 1,000 ml @ 1.5 GM/HR 37.5 mls/hr IV DIRECT URSULA Rx#: [id number] Oral 240 Output: Urine 300 2000 Indwelling Catheter 2000 Emesis 200 Other: Total, Intake Amount 120 Total, Output Amount 200 1400 Estimated Blood Loss 600 - Exam Breasts: Present: normal Cardiovascular: Present: Regular rate Lungs: Present: Clear to auscultation, Normal air movement Abdomen: Present: normal appearance, soft, normal bowel sounds Uterus: Present: normal, firm, fundal height below umbilicus Extremities: Present: edema (+2 pitting) Incision: Present: dry, dressed - Labs Labs: Abnormal lab results 09/26/17 09/26/17 Range/Units 12:28 20:53 Magnesium 5.40 H 4.80 H (1.7-2.3) mg/dL
--- NOTE | 2017-09-27 14:21 | Progress Note ---
Subjective Date of service: 09/27/17 Principal diagnosis: 37 weeks with pre-eclampsia Interval history: 1st POD after Patient is in the bed, comfortable. Pain is well controlled with pain meds. Has not ambulated yet due to Mg2SO4 infusion. No residual neurological deficit. No anesthesia complications Objective - Constitutional Vitals: Vital Signs - 12hr 09/27/17 09/27/17 09/27/17 04:00 06:05 08:38 Temperature 98.5 F 98.5 F Pulse Rate 88 99 H 78 Respiratory 20 20 18 Rate Blood Pressure 149/86 Blood Pressure 167/93 142/72 [Right] O2 Sat by Pulse 100 100 99 Oximetry - Labs CBC & Chem 7: 09/27/17 05:33 09/25/17 16:24 Labs: Abnormal lab results 09/26/17 Range/Units 20:53 Magnesium 4.80 H (1.7-2.3) mg/dL
--- NOTE | 2017-09-27 14:50 | Progress Note ---
Assessment and Plan - Patient Problems (1) 37 weeks gestation of Current Visit: Yes Status: Acute (2) Pre-eclampsia Current Visit: Yes Status: Acute Plan to address problem: Will discontinue magnesium sulfate today. Laletolol ordered. (3) Morbid obesity due to excess calories Current Visit: Yes Status: Acute (4) delivery delivered Current Visit: Yes Status: Acute Plan to address problem: Patient is doing well. She itching from pain meds. Benadryl given. Subjective - Subjective Date of service: 09/27/17 Principal diagnosis: 37 weeks with pre-eclampsia Interval history: Patient is S/P primary C/section for pre-eclampsia and failed induction, POD # 1. She is being treated for pre-eclampsia with magnesium. Her BP is still elevated. She denies any symptoms. She is tolerating regular diet well. Objective - Vital Signs Latest vital signs: Vital Signs Temp Pulse Resp BP BP Pulse Ox 09/27/17 08:38 98.5 F 78 18 149/86 99 09/27/17 06:05 99 H 20 142/72 100 09/27/17 04:00 98.5 F 88 20 167/93 100 09/27/17 02:00 99 H 20 169/102 100 09/27/17 00:30 98.8 F 98 H 20 154/89 100 09/26/17 22:35 98 H 20 153/89 09/26/17 22:15 103 H 168/101 09/26/17 20:50 98.2 F 85 20 164/109 98 09/26/17 17:10 98.2 F 77 20 145/93 09/26/17 16:45 97.9 F 09/26/17 16:40 78 16 143/95 99 09/26/17 16:30 73 17 141/95 99 09/26/17 16:20 74 23 151/104 98 09/26/17 16:10 70 23 144/94 97 09/26/17 16:00 71 22 150/89 97 09/26/17 15:50 97.9 F 77 17 151/95 98 09/26/17 15:47 80 18 99 Intake and Output 09/26/17 09/27/17 09/27/17 23:59 07:59 15:59 Intake Total 100 580.625 125 Output Total 400 2000 1500 Balance -300 -2433.487 -2142 Intake: IV 100 340.625 125 Left Hand 125 MAGNESIUM SULFATE 40GM/ 340.625 1000ML 40 gm In 1,000 ml @ 1.5 GM/HR 37.5 mls/hr IV DIRECT URSULA Rx#: [id number] Oral 240 Output: Urine 200 2000 1500 Indwelling Catheter 2000 1500 Emesis 200 Other: Total, Intake Amount 120 Total, Output Amount 200 1400 1500 - Exam Cardiovascular: Present: Normal S1, Normal S2 Lungs: Present: Clear to auscultation Deep Tendon Reflex Grade: Normal +2 - Labs Labs: Abnormal lab results 09/26/17 Range/Units 20:53 Magnesium 4.80 H (1.7-2.3) mg/dL
[2017-09-27] MEDS: NORMODYNE PO SCH ×2 (14:52→21:27)
[2017-09-27] MEDS ORDERED: SENOKOT PO PRN (15:57)
[2017-09-27] MEDS: PERCOCET 5/325 PO PRN (19:29)
[2017-09-27] MEDS: MOTRIN PO PRN (21:26)
--- NOTE | 2017-09-28 10:51 | Progress Note ---
Assessment and Plan A: POD #2 Preeclampsia P: Follow Routine PostOp orders Continue MD Management of BP Encourage increased ambulation Subjective - Subjective Date of service: 09/28/17 Principal diagnosis: 37 weeks with pre-eclampsia Patient reports: appetite normal, voiding normally, pain well controlled, flatus , bowel movement, ambulating normally : in NICU Objective - Vital Signs Latest vital signs: Vital Signs Temp Pulse Resp BP BP Pulse Ox 09/28/17 09:45 98.6 F 96 H 18 153/79 09/28/17 00:00 98.6 F 66 16 101/69 09/27/17 22:55 98.5 F 09/27/17 21:27 94 H 132/84 09/27/17 20:00 101 F H 66 16 132/84 09/27/17 19:29 20 09/27/17 16:30 98.8 F 99 H 20 138/75 100 09/27/17 14:52 104 H 142/73 09/27/17 14:30 98.6 F 98 H 18 132/78 100 09/27/17 12:42 98.3 F 96 H 18 134/74 98 09/27/17 11:04 98.2 F 97 H 18 149/79 95 Intake and Output 09/27/17 09/28/17 09/28/17 22:59 06:59 14:59 Intake Total 300 120 Output Total 1650 Balance -1650 300 120 Intake: Oral 120 Intake, Free Water 300 Output: Urine 1650 Indwelling Catheter 700 Void 950 Other: Total, Intake Amount 120 Total, Output Amount 500 # Voids Indwelling Catheter 1 Void 1 - Exam Breasts: Present: normal Cardiovascular: Present: Regular rate Lungs: Present: Clear to auscultation, Normal air movement Abdomen: Present: normal appearance, soft, normal bowel sounds Uterus: Present: normal, firm, fundal height below umbilicus Extremities: Present: edema Incision: Present: normal, dry, intact
[2017-09-28] MEDS: PERCOCET 5/325 PO PRN ×2 (11:17→23:44)
[2017-09-28] MEDS: MOTRIN PO PRN (11:18)
[2017-09-28] MEDS: NORMODYNE PO SCH ×2 (11:19→22:12)
[2017-09-28 17:56] LABS: Basophils % (Auto) 0.3 % (0.0-1.8); Eosinophils % (Auto) 1.3 % (0.0-4.3); Hematocrit 32.1 % (30.3-42.9); Mean Corpuscular HGB Conc 34 % (30-34); Mean Corpuscular Hemoglobin 33 pg (28-32); Mean Corpuscular Volume 96 fl (79-97); Platelet Count 118 K/mm3 (140-440); Red Blood Count 3.35 M/mm3 (3.65-5.03); Red Cell Distribution Width 14.2 % (13.2-15.2); White Blood Count 7.4 K/mm3 (4.5-11.0)
[2017-09-28 18:10] LABS: Anion Gap 17 mmol/L; BUN/Creatinine Ratio 11; Blood Urea Nitrogen 10 mg/dL (7-17); Calcium 7.4 mg/dL (8.4-10.2); Carbon Dioxide 21 mmol/L (22-30); Chloride 105.9 mmol/L (98-107); Glucose 99 mg/dL (65-100); Potassium 4.3 mmol/L (3.6-5.0); Sodium 140 mmol/L (137-145)
--- NOTE | 2017-09-28 18:47 | XRay Report ---
FINAL REPORT PROCEDURE: XR CHEST 1V AP TECHNIQUE: Chest radiograph anteroposterior view. CPT 76811 HISTORY: Productive cough. COMPARISON: No prior studies are available for comparison. FINDINGS: Heart: Normal. Mediastinum/Vessels: Normal. Lungs/Pleural space: Normal. Bony thorax: No acute osseous abnormality. Life support devices: None. IMPRESSION: No radiographic evidence of acute cardiopulmonary disease. Evaluation limited by patient body habitus.
--- NOTE | 2017-09-28 20:41 | History and Physical Report ---
History of Present Illness Date of admission: 09/25/17 15:33 Chief complaint: Coughing History of present illness: 22 YO Female with Gestational HTN admitted for gestational HTN. Consult placed for coughing. No reports of fever, chills, CP, Palpitations, NVD, Syncope, or recent ill contacts. Pt denies pain. Pt acknowledges nonproductive cough. Pt found to have evidence of bronchitis. Pt currently on antibiotics. Steroids will be added. Pt may be discharged home as per primary team with steroid taper , and antibiotics. Past History Past Medical History: other (Bronchitis) Past Surgical History: Social history: single. denies: smoking, alcohol abuse Family history: hypertension Medications and Allergies Allergies Allergy/AdvReac Type Severity Reaction Status Date / Time No Known Allergies Allergy Unverified 09/25/17 16:24 Home Medications Medication Instructions Recorded Confirmed Last Taken Type No Known Home Medications [No 09/25/17 09/25/17 Unknown History Reported Home Medications] Active Meds: Active Medications Acetaminophen (Tylenol) 650 mg PO Q4H PRN PRN Reason: Fever >100.5/[place] Albuterol (Proventil) 2.5 mg IH Q4HRT PRN PRN Reason: Shortness Of Breath Butorphanol Tartrate (Stadol) 2 mg IV Q2H PRN PRN Reason: Pain , Severe (7-10) Diphenhydramine HCl (Benadryl) 12.5 mg IV Q2H PRN PRN Reason: Itching Last Admin: 09/27/17 01:04 Dose: 12.5 mg Fentanyl (Sublimaze) 100 mcg IV Q2H PRN PRN Reason: Labor Pain Last Admin: 09/26/17 02:12 Dose: 100 mcg Lactated Ringer's (Lactated Ringers) 1,000 mls @ 125 mls/hr IV DIRECT URSULA Last Admin: 09/27/17 05:05 Dose: 125 mls/hr Ampicillin Sodium (Polycillin/Ns 1 Gm/50 Ml) 1 gm in 50 mls @ 100 mls/hr IV Q4HR URSULA PRN Reason: Protocol Oxytocin/Sodium Chloride (Pitocin/Ns 20 Unit/1000ml Drip) 20 units in 1,000 mls @ 0 mls/hr IV DIRECT URSULA PRN Reason: As Directed Last Admin: 09/26/17 14:53 Dose: 125 mls/hr Oxytocin/Sodium Chloride (Pitocin/Ns 20 Unit/1000ml Drip) 20 units in 1,000 mls @ 250 mls/hr IV DIRECT URSULA Magnesium Sulfate (Magnesium Sulfate 40gm/1000ml) 40 gm in 1,000 mls @ 37.5 mls /hr IV DIRECT URSULA PRN Reason: 1.5 GM/HR Last Admin: 09/27/17 01:05 Dose: 1.5 gm/hr, 37.5 mls/hr Ibuprofen (Motrin) 800 mg PO Q6H PRN PRN Reason: Pain, Mild (1-3) Last Admin: 09/28/17 11:18 Dose: 800 mg Ketorolac Tromethamine (Toradol) 30 mg IV Q6H PRN PRN Reason: Pain, Moderate (4-6) Stop: 10/01/17 13:44 Last Admin: 09/27/17 05:11 Dose: 30 mg Labetalol HCl (Normodyne) 200 mg PO BID URSULA Last Admin: 09/28/17 11:19 Dose: 200 mg Mineral Oil (Mineral Oil) 30 ml PO QHS PRN PRN Reason: Constipation Misoprostol (Cytotec) 25 mcg VG Q4H PRN PRN Reason: Labor Induction Last Admin: 09/26/17 02:25 Dose: 25 mcg Morphine Sulfate (Morphine) 4 mg IV Q4H PRN PRN Reason: Pain , Severe (7-10) Multi-Ingredient Ointment (Lansinoh) 1 applic TP PRN PRN PRN Reason: dryness/cracking Naloxone HCl (Narcan 0.4 Mg/1 Ml) 0.1 mg IV Q2MIN PRN PRN Reason: Res Rate </= 8 or 02 SAT < 92% Ondansetron HCl (Zofran) 4 mg IV Q8H PRN PRN Reason: Nausea And Vomiting Oxycodone/Acetaminophen (Percocet 5/325) 1 tab PO Q6H PRN PRN Reason: Pain, Moderate (4-6) Last Admin: 09/28/17 11:17 Dose: 1 tab Promethazine HCl (Phenergan) 25 mg NE Q6H PRN PRN Reason: Nausea And Vomiting Senna (Senokot) 17.2 mg PO QHS PRN PRN Reason: Constipation Simethicone (Mylicon) 80 mg PO Q6H PRN PRN Reason: Gas pain Sodium Chloride (Sodium Chloride Flush Syringe 10 Ml) 10 ml IV PRN URSULA Witch Janis/Glycerin (Tucks Pad) 1 each TP PRN PRN PRN Reason: Hemorrhoids/cleansing/soothing Review of Systems Constitutional: no weight loss, no weight gain, no fever, no chills Ears, nose, mouth and throat: no ear pain, no ear discharge, no tinnitis, no decreased hearing, no nose pain, no nasal congestion Breasts: no change in shape, no swelling, no mass Cardiovascular: no chest pain, no orthopnea, no palpitations, no rapid/ irregular heart beat, no edema, no syncope Respiratory: cough, no excessive sputum, no hemoptysis, no shortness of breath, no dyspnea on exertion Gastrointestinal: no abdominal pain, no nausea, no vomiting, no diarrhea, no constipation, no change in bowel habits Genitourinary Female: no pelvic pain, no flank pain, no menorrhagia Rectal: no pain, no incontinence, no bleeding Musculoskeletal: no neck stiffness, no neck pain, no shooting arm pain, no low back pain Integumentary: no rash, no pruritis, no redness, no sores, no wounds Neurological: no head injury, no transient paralysis, no paralysis, no weakness , no parathesias, no numbness, no tingling, no seizures Psychiatric: no anxiety, no memory loss, no change in sleep habits, no sleep disturbances, no insomnia, no hypersomnia Endocrine: no cold intolerance, no heat intolerance, no polyphagia, no excessive thirst, no polydipsia Hematologic/Lymphatic: no easy bruising, no easy bleeding Allergic/Immunologic: no urticaria, no allergic rhinitis, no wheezing Exam - Constitutional Vitals: Temp Pulse Resp BP Pulse Ox 97.5 F L 91 H 18 114/63 99 09/28/17 16:10 09/28/17 16:10 09/28/17 16:10 09/28/17 16:10 09/28/17 11:15 General appearance: Present: no acute distress, well-nourished - EENT Eyes: Present: PERRL ENT: hearing intact, clear oral mucosa - Neck Neck: Present: supple, normal ROM - Respiratory Respiratory effort: normal Respiratory: bilateral: wheezing - Cardiovascular Heart Sounds: Present: S1 & S2. Absent: rub, click - Extremities Extremities: pulses symmetrical, No edema Peripheral Pulses: within normal limits - Abdominal General gastrointestinal: Present: soft, non-tender, non-distended, normal bowel sounds Female genitourinary: Present: normal - Integumentary Integumentary: Present: clear, warm, dry - Musculoskeletal Musculoskeletal: gait normal, strength equal bilaterally - Psychiatric Psychiatric: appropriate mood/affect, intact judgment & insight - Neurologic Neurologic: CNII-XII intact, moves all extremities Results - Labs CBC & Chem 7: 09/28/17 17:27 12 17:27 Labs: Abnormal lab results 09/28/17 09/28/17 Range/Units 17:27 17:27 RBC 3.35 L (3.65-5.03) M/mm3 MCH 33 H (28-32) pg Plt Count 118 L (140-440) K/mm3 [place] % (Auto) 10.8 H (0.0-7.3) % Carbon Dioxide 21 L (22-30) mmol/L Calcium 7.4 L (8.4-10.2) mg/dL Assessment and Plan - Patient Problems (1) Acute bronchitis Current Visit: Yes Status: Acute Plan to address problem: Supplemental oxygen, nebulizer therapy, Antibiotics, steroids, incentive spirometry, ambulatie TID and PRN, pulmonary toilet.
--- NOTE | 2017-09-29 08:58 | Progress Note ---
Assessment and Plan A: POD 3 - coughing Preeclampsia H/O chronic bronchitis - symptomatic P: Continue routine postop orders Continue MD management of BPs Continue MD management of bronchitis Discharge in the AM 09/30/17 F/U in 1 week for postop exam/juanita removal Subjective - Subjective Date of service: 09/29/17 Principal diagnosis: 37 weeks with pre-eclampsia Patient reports: appetite normal, voiding normally, pain well controlled, flatus , bowel movement, ambulating normally, other (coughing, personal h/o chronic bronchitis, s/p internal medicine consult last night, will be started on Solu- Medrol & Zithromax today) : in NICU, bottle feeding Objective - Vital Signs Latest vital signs: Vital Signs Temp Pulse Resp BP BP BP Pulse Ox 09/29/17 07:47 98.1 F 91 H 20 156/83 09/28/17 23:44 16 09/28/17 23:30 98.6 F 66 16 121/71 09/28/17 22:12 80 114/64 09/28/17 16:10 97.5 F L 91 H 18 114/63 09/28/17 11:19 88 134/63 09/28/17 11:15 98.5 F 88 18 134/63 99 09/28/17 09:45 98.6 F 96 H 18 153/79 Intake and Output 09/28/17 09/29/17 09/29/17 23:59 07:59 15:59 Intake Total 120 Balance 120 Intake: Oral 120 Other: Total, Intake Amount 120 # Voids Void 1 - Exam Breasts: Present: deferred Cardiovascular: Present: Regular rate, Normal S1, Normal S2, No murmurs Lungs: Present: Clear to auscultation, Normal air movement Abdomen: Present: normal appearance, soft Vulva: both: normal Uterus: Present: normal, firm, fundal height below umbilicus Extremities: Present: tenderness, edema (3+) Deep Tendon Reflex Grade: Dull/Diminished +1 Incision: Present: normal, dry, intact - Labs Labs: Abnormal lab results 09/28/17 09/28/17 Range/Units 17:27 17:27 RBC 3.35 L (3.65-5.03) M/mm3 MCH 33 H (28-32) pg Plt Count 118 L (140-440) K/mm3 [place] % (Auto) 10.8 H (0.0-7.3) % Carbon Dioxide 21 L (22-30) mmol/L Calcium 7.4 L (8.4-10.2) mg/dL
--- NOTE | 2017-09-29 09:04 | Progress Note ---
Assessment and Plan - Patient Problems (1) Pre-eclampsia Current Visit: Yes Status: Acute Plan to address problem: Magnesium sulfate was discontinued. Pt is on labetolol. BP is stable. (2) Morbid obesity due to excess calories Current Visit: Yes Status: Acute (3) delivery delivered Current Visit: Yes Status: Acute Plan to address problem: Patient is doing well. Encourage ambulation. Subjective - Subjective Date of service: 09/29/17 Principal diagnosis: 37 weeks with pre-eclampsia Interval history: Patient is S/P primary C/section for pre-eclampsia and failed induction, POD # 1. She received magnesium sulfate before the C/section and for 24 hours post operatively. Her BP remained elevated. She was started on labetolol PO BID. BP has been stable. Yesterday, she developed a productive cough. She remained afebrile. Medical consult was done. CXR was normal. Recommended IV steroid and spirometry. Zithromax PO was added this AM. Patient is feeling better. She will be observed until tomorrow. If her symptoms improve, she will be discharged home on steroid tapered dose. Objective - Vital Signs Latest vital signs: Vital Signs Temp Pulse Resp BP BP BP Pulse Ox 09/29/17 07:47 98.1 F 91 H 20 156/83 09/28/17 23:44 16 09/28/17 23:30 98.6 F 66 16 121/71 09/28/17 22:12 80 114/64 09/28/17 16:10 97.5 F L 91 H 18 114/63 09/28/17 11:19 88 134/63 09/28/17 11:15 98.5 F 88 18 134/63 99 09/28/17 09:45 98.6 F 96 H 18 153/79 Intake and Output 09/28/17 09/29/17 09/29/17 23:59 07:59 15:59 Intake Total 120 Balance 120 Intake: Oral 120 Other: Total, Intake Amount 120 # Voids Void 1 - Exam Cardiovascular: Present: Normal S1, Normal S2 Lungs: Present: Clear to auscultation - Labs Labs: Abnormal lab results 09/28/17 09/28/17 Range/Units 17:27 17:27 RBC 3.35 L (3.65-5.03) M/mm3 MCH 33 H (28-32) pg Plt Count 118 L (140-440) K/mm3 [place] % (Auto) 10.8 H (0.0-7.3) % Carbon Dioxide 21 L (22-30) mmol/L Calcium 7.4 L (8.4-10.2) mg/dL
--- NOTE | 2017-09-29 09:19 | Discharge Summary ---
Providers - Providers Date of Admission: 09/25/17 15:33 Date of discharge: 09/30/17 Attending physician: KAREY HAYNES MD 09/28/17 15:58 Consult to Physician [CONS] Routine Consulting Provider: SUN RODRIGUEZ Reason For Exam: Productive cough Place consult to:: hospitalist Notified:: Sun Rodriguez MD Primary care physician: KAREY HAYNES MD Hospitalization Reason for admission: induction of labor (preeclampsia) Delivery: Procedure: section, primary low transverse Episiotomy: none Laceration: none Incision: normal, dry, intact complications: other (acute bronchitis ) Discharge diagnosis: IUP at term delivered, other (Gestational Hypertension, Acute Bronchitis) baby: male Hospital course: complicated by PIH and acute bronchitis Condition at discharge: Stable Disposition: DC-01 TO HOME OR SELFCARE Plan - Discharge Medications Prescriptions: Azithromycin [Zithromax TAB] 500 mg PO QDAY 4 Days #4 tablet Ibuprofen [Motrin 800 MG tab] 800 mg PO Q6H PRN 14 Days #60 tablet PRN Reason: Pain, Mild (1-3) - Provider Discharge Summary Activity: routine, no sex for 6 weeks, no heavy lifting 4 weeks, no strenuous exercise Diet: routine Instructions: routine Additional instructions: [] Smoking cessation referral if applicable(refer to patient education folder for contact #) [] Refer to [facility]'s [facility] Booklet Call your doctor immediately for: * Fever > 100.5 * Heavy vaginal bleeding ( >1 pad per hour) * Severe persistent headache * Shortness of breath * Reddened, hot, painful area to leg or breast * Drainage or odor from incision. * Keep incision clean and dry at all times and follow doctor's instructions regarding bathing/showering - Follow up plan Follow up: KAREY HAYNES MD [Primary Care Provider] - 7 Days (Follow up with Dr. Haynes in 1 week for postop exam)
[2017-09-29] MEDS: NORMODYNE PO SCH ×2 (12:20→21:56)
[2017-09-29] MEDS: ZITHROMAX PO SCH (12:21)
[2017-09-29] MEDS: PERCOCET 5/325 PO PRN (12:27)
[2017-09-29] MEDS: MOTRIN PO PRN (12:28)
--- NOTE | 2017-09-29 14:32 | Progress Note ---
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 Absent: masses or JVD - Respiratory Respiratory effort: normal Respiratory: bilateral: CTA, negative: rhonchi, wheezing - Cardiovascular Rhythm: other (tachycardic) Heart Sounds: Present: S1 & S2. Absent: systolic murmur - Extremities Extremities: no ischemia - Abdominal General gastrointestinal: soft, tender (s/p ), distended (), normal bowel sounds - Psychiatric Psychiatric: cooperative - Neurologic Neurologic: CNII-XII intact, no focal deficits Results - Labs CBC & Chem 7: 09/28/17 17:27 09/28/17 17:27 Labs: Laboratory Last Values WBC 7.4 K/mm3 (4.5-11.0) 09/28/17 17:27 RBC 3.35 M/mm3 (3.65-5.03) L 09/28/17 17:27 Hgb 11.0 gm/dl (10.1-14.3) 09/28/17 17:27 Hct 32.1 % (30.3-42.9) 09/28/17 17:27 MCV 96 fl (79-97) 09/28/17 17:27 MCH 33 pg (28-32) H 09/28/17 17:27 MCHC 34 % (30-34) 09/28/17 17:27 RDW 14.2 % (13.2-15.2) 09/28/17 17:27 Plt Count 118 K/mm3 (140-440) L 09/28/17 17:27 Lymph % (Auto) 25.8 % (13.4-35.0) 09/28/17 17:27 [place] % (Auto) 10.8 % (0.0-7.3) H 09/28/17 17:27 Eos % (Auto) 1.3 % (0.0-4.3) 09/28/17 17:27 Baso % (Auto) 0.3 % (0.0-1.8) 09/28/17 17:27 Lymph # 1.9 K/mm3 (1.2-5.4) 09/28/17 17:27 [place] # 0.8 K/mm3 (0.0-0.8) 09/28/17 17:27 Eos # 0.1 K/mm3 (0.0-0.4) 09/28/17 17:27 Baso # 0.0 K/mm3 (0.0-0.1) 09/28/17 17:27 Seg Neutrophils % 61.8 % (40.0-70.0) 09/28/17 17:27 Seg Neutrophils # 4.6 K/mm3 (1.8-7.7) 09/28/17 17:27 Sodium 140 mmol/L (137-145) 09/28/17 17:27 Potassium 4.3 mmol/L (3.6-5.0) 09/28/17 17:27 Chloride 105.9 mmol/L (98-107) 09/28/17 17:27 Carbon Dioxide 21 mmol/L (22-30) L 09/28/17 17:27 Anion Gap 17 mmol/L 09/28/17 17:27 BUN 10 mg/dL (7-17) 09/28/17 17:27 Creatinine 0.9 mg/dL (0.7-1.2) 09/28/17 17:27 Estimated GFR > 60 ml/min 09/28/17 17:27 BUN/Creatinine Ratio 11 % 09/28/17 17:27 Glucose 99 mg/dL (65-100) 09/28/17 17:27 Uric Acid 7.4 mg/dL (3.5-7.6) 09/25/17 16:24 Calcium 7.4 mg/dL (8.4-10.2) L 09/28/17 17:27 Magnesium 4.80 mg/dL (1.7-2.3) H 09/26/17 20:53 AST 17 units/L (5-40) 09/25/17 16:24 ALT 12 units/L (7-56) 09/25/17 16:24 Lactate Dehydrogenase 268 units/L (91-180) H 09/25/17 16:24 Urine Color Yellow (Yellow) 09/25/17 15:30 Urine Turbidity Clear (Clear) 09/25/17 15:30 Urine pH 6.0 (5.0-7.0) 09/25/17 15:30 Ur Specific [place] 1.020 (1.003-1.030) 09/25/17 15:30 Urine Protein >500 mg/dL (Negative) 09/25/17 15:30 Urine Glucose (UA) Neg mg/dL (Negative) 09/25/17 15:30 Urine Ketones Neg mg/dL (Negative) 09/25/17 15:30 Urine Blood Neg (Negative) 09/25/17 15:30 Urine Nitrite Neg (Negative) 09/25/17 15:30 Urine Bilirubin Neg (Negative) 09/25/17 15:30 Urine Urobilinogen < 2.0 mg/dL (<2.0) 09/25/17 15:30 Ur Leukocyte Esterase Neg (Negative) 09/25/17 15:30 Urine WBC (Auto) 19.0 /HPF (0.0-6.0) H 09/25/17 15:30 Urine RBC (Auto) 4.0 /HPF (0.0-6.0) 09/25/17 15:30 U Epithel Cells (Auto) 6.0 /HPF (0-13.0) 09/25/17 15:30 Urine Bacteria (Auto) 4+ /HPF (Negative) 09/25/17 15:30 Hyaline Casts 2 /LPF 09/25/17 15:30 Urine Mucus 1+ /HPF 09/25/17 15:30
[2017-09-30] MEDS: PERCOCET 5/325 PO PRN (00:41)
[2017-09-30] MEDS: MOTRIN PO PRN (00:41)
[2017-09-30] MEDS: NORMODYNE PO SCH (09:52)
[2017-09-30] MEDS: ZITHROMAX PO SCH (09:55)
[2017-09-30 15:56] VITALS: BP 149/91
== END 2017-09-30 16:40 | disposition home or self-care (01) | DRG 765 ==
LOC: TRG 15:03 → LD 15:33 → TRG 15:33 → OB 09-26 17:25
PROVIDERS: ADMIT Obstetrics & Gynecology; ATTEND Obstetrics & Gynecology
PROC: 10D00Z1 Extraction of Products of Conception, Low, Open Approach (ICD-10-PCS; principal; 2017-09-26)
DX: O13.4 Gestational [pregnancy-induced] hypertension without significant proteinuria, complicating childbirth (principal); Z68.42 Body mass index [BMI] 45.0-49.9, adult; O99.214 Obesity complicating childbirth; O14.94 Unspecified pre-eclampsia, complicating childbirth; O99.824 Streptococcus B carrier state complicating childbirth; E66.01 Morbid (severe) obesity due to excess calories; J20.9 Acute bronchitis, unspecified; O99.52 Diseases of the respiratory system complicating childbirth; O61.0 Failed medical induction of labor; Z37.0 Single live birth; Z3A.37 37 weeks gestation of pregnancy; Z71.3 Dietary counseling and surveillance; Z82.49 Family history of ischemic heart disease and other diseases of the circulatory system
CPT/HCPCS: 36415; 71010; 80048; 81001; 82565; 83615; 83735; 84450; 84460; 84550; 85014; 85018; 85025; 85027; 88307; 94640; 99211; G0463; J0290; J0360; J0690; J1200; J1885; J2270; J2370; J2405; J2590; J2765; J2920; J3010; J3475; J7120